=== PATIENT | female | born 1970 | race Caucasian/White ===

== ENCOUNTER 2023-12-23 19:05 | Emergency (ER) | payer OTHER ==
[2023-12-23 19:17] VITALS: BP 140/87; O2SAT 98
--- NOTE | 2023-12-23 19:25 | ED Physician Documentation ---
History of Present Illness - Stated complaint Stated Complaint: RT LEG PX - Chief complaint Chief Complaint: Ext Problem - History obtained from History obtained from: Patient - Additonal information Additional information: 53yF with active job, up and down on feet during the day, p/w R anterior leg pain starting today. denies injury. denies calf pain. no prior hx clots. not on ac. no recent travel, bedrest, no hormone use. PD PAST MEDICAL HISTORY - Past Medical History Past Medical History: No - Past Surgical History Past Surgical History: No - Allergies Allergies/Adverse Reactions: Allergies Allergy/AdvReac Type Severity Reaction Status Date / Time naproxen Allergy Rash Verified 12/23/23 19:15 - Social History Does the pt smoke?: Yes Smoking Status: Current every day smoker Does the pt drink ETOH?: No Does the pt have substance abuse?: No - Immunizations Immunizations are current?: Yes - POLST Patient has POLST: No PD ED PE NORMAL - Vitals Vital signs reviewed: Yes - General General: Alert and oriented X 3, No acute distress, Well developed/nourished - HEENT HEENT: Atraumatic, PERRL, EOMI - Neck Neck: Supple, no meningeal sign - Derm Derm: Normal color, Warm and dry, No rash, Other (no erythema or ecchymosis) - Extremities Extremities: No deformity, No tenderness to palpate, Normal ROM s pain, No edema, No calf tenderness / cord, Other (csm intact BL LE. R anterior distal leg discomfort to palpation without visible swelling, ecchymosis, or erythema) Results - Vitals Vitals: Vital Signs - 24 hr 12/23/23 19:09 Temperature 36.5 C Heart Rate 100 Respiratory 16 Rate Blood Pressure 140/87 H O2 Saturation 98 Oxygen O2 Source Room air PD Medical Decision Making - ED course ED course: 53yF p/w likely anterior leg muscle spasm/strain, benign appearing on exam. symptomatic care discussed, return precautions given Departure - Departure Disposition: 01 Home, Self Care Clinical Impression: Edwards splint of right lower extremity Instructions: ED RICE Comments: You were seen in the emergency department for edwards splints. You can take 400 to 600 mg of ibuprofen every 6 hours with food. Please follow-up with your primary care provider and return to the emergency department if you have any new or worsening symptoms or other concerns. Forms: PCP List
== END 2023-12-23 19:27 | disposition home or self-care (01) ==
LOC: ED 19:05
DX: S86.891A Other injury of other muscle(s) and tendon(s) at lower leg level, right leg, initial encounter (principal); X58.XXXA Exposure to other specified factors, initial encounter; F17.200 Nicotine dependence, unspecified, uncomplicated
CPT/HCPCS: 99281; 99282